=== PATIENT | female | born 1970 | race Caucasian/White ===

== ENCOUNTER 2021-10-07 13:17 | Emergency (ER) | payer OTHER ==
[~2021-10-07] VITALS: Ht 152.4 cm; Wt 72.6 kg
[2021-10-07] MEDS ORDERED: KETOROLAC TROMETHAMINE INJ 30 MG/ML VIAL ONE (14:41)
[2021-10-07] MEDS ORDERED: IBUP-1957 PO (14:41)
[2021-10-07] MEDS ORDERED: CYCLOBENZAPRINE 10 MG TABLET ONE (14:41)
[2021-10-07] MEDS ORDERED: CYCL5TAB PO (14:41)
[2021-10-07 14:48] VITALS: BP 103/63
[2021-10-07] MEDS ORDERED: CYCLOBENZAPRINE 10 MG TABLET PO ONE (15:00)
[2021-10-07] MEDS ORDERED: KETOROLAC TROMETHAMINE INJ 30 MG/ML VIAL IM ONE (15:00)
== END 2021-10-07 14:48 | disposition home or self-care (01) ==
LOC: ER 13:23
DX: S16.1XXA Strain of muscle, fascia and tendon at neck level, initial encounter (principal); F32.A Depression, unspecified; W01.0XXA Fall on same level from slipping, tripping and stumbling without subsequent striking against object, initial encounter; Y93.89 Activity, other specified; Y92.89 Other specified places as the place of occurrence of the external cause; Y99.8 Other external cause status
CPT/HCPCS: 99283; 96372; J1885